=== PATIENT | male | born 1955 | race Caucasian/White ===

== ENCOUNTER 2017-02-18 05:35 | Inpatient (IN) | payer MEDICAID ==
[~2017-02-18] VITALS: Ht 180.3 cm; Wt 124.1 kg
[~2017-02-18 05:35] MED LIST: AMIODARONE PO; ASPI81CH43 PO; DOC100C PO; LISI-285 PO; MET50T PO; METF500T PO; NITR0.4S29 SL; SIMV-8 PO
[2017-02-18] MEDS ORDERED: NITROGLYCERIN 0.4 MG SL TAB SL ONE (06:00)
[2017-02-18 06:35] LABS: Basophils # (auto) 0 uL; Basophils % (auto) 0.6 % (0.0-2.0); Eosinophils # (auto) 0.1 uL; Eosinophils % (auto) 2.5 % (0.0-7.0); Hematocrit 41.9 % (41.0-53.0); Hemoglobin 14.1 g/dL (13.5-17.5); Lymphocytes # (auto) 0.8 uL; Lymphocytes % (auto) 16.9 % (10.0-50.0); Mean Corpuscular Hemoglobin 31.6 pg (28.0-32.0); Mean Corpuscular Hgb Conc. 33.7 g/dL (32.0-36.0); Mean Corpuscular Volume 93.7 fL (80.0-100.0); Mean Platelet Volume 9.8 fL (7.4-10.4); Monocytes # (auto) 0.4 uL; Monocytes % (auto) 8.5 % (0.0-12.0); Neutrophils # (auto) 3.4 uL; Neutrophils % (auto) 71.5 % (37.0-80.0); Platelet Count (auto) 213 10^3/uL (140-450); Red Cell Distribution Width 14.7 % (11.6-16.0); White Blood Cell 4.8 10^3/uL (4.4-10.8)
[2017-02-18 06:49] LABS: Albumin 3.4 g/dL (3.4-5.0); Anion Gap 11 (5-15); Aspartate Aminotransferase 44 U/L (15-37); BUN/Creatinine Ratio 15.7; Blood Urea Nitrogen 16 mg/dL (7-18); Calcium 9.2 mg/dL (8.5-10.1); Carbon Dioxide 25 mmol/L (21-32); Chloride 105 mmol/L (98-107); GFR African American 95 mL/min; GFR Non-African American 79 mL/min; Glucose 135 mg/dL (74-106); Magnesium 1.7 mg/dL (1.6-2.6); Sodium 141 mmol/L (136-145)
[2017-02-18 06:50] LABS: INR 1.05 (0.9-1.15); Prothrombin Time 11.4 sec (9.37-12.3)
[2017-02-18 06:55] LABS: Alkaline Phosphatase 75 U/L (45-117); Bilirubin, Total 0.6 mg/dL (0.2-1.0); Total Protein 7.7 g/dL (6.4-8.2)
[2017-02-18 06:58] LABS: B-Type Natriuretic Peptide 52.88 pg/mL (0-100)
[2017-02-18 07:07] LABS: Temperature: 23.2 C (20.0-25.0)
[2017-02-18] MEDS ORDERED: ASPirin 81 mg TAB PO ONE (09:15)
[2017-02-18] MEDS ORDERED: LORazepam 0.5 MG TAB PO ONE (09:15)
[2017-02-18] MEDS ORDERED: NITROGLYCERIN 0.4MG/HR TOPICAL PATCH TD ONE (09:15)
[2017-02-18] MEDS ORDERED: ERGOCALCIFEROL 50,000 UNIT(1.25MG) CAP PO SCH (11:45)
[2017-02-18] MEDS ORDERED: DEXTROSE (50%) 50ML SYRG IV PRN (11:45)
[2017-02-18] MEDS ORDERED: ONDANSETRON HCL 4 MG/2 ML VIAL IV PRN (12:00)
[2017-02-18] MEDS ORDERED: ALUM & MAG HYDROX-SIMETH LIQ(MAALOX) 30 ML PO PRN (12:00)
[2017-02-18] MEDS ORDERED: ZOLPIDEM TARTRATE 5 MG TAB PO PRN (12:00)
[2017-02-18] MEDS ORDERED: LORazepam 0.5 MG TAB PO PRN (12:00)
[2017-02-18] MEDS ORDERED: NITROGLYCERIN 0.4 MG SL TAB SL PRN ×2 (12:00)
[2017-02-18] MEDS ORDERED: ACETAMINOPHEN 325 MG TAB PO PRN (12:00)
[2017-02-18] MEDS ORDERED: MORPHINE SULF INJ 2 MG/ML SYRINGE 1ML IV PRN ×2 (12:00)
[2017-02-18] MEDS ORDERED: AMIODARONE HCL 200 MG TAB PO ONE (12:15)
[2017-02-18] MEDS ORDERED: METOPROLOL TARTRATE 25 MG TAB PO ONE (12:15)
[2017-02-18] MEDS ORDERED: DOCUSATE SOD 100 MG CAP PO ONE (12:15)
[2017-02-18] MEDS ORDERED: LOSARTAN POTASSIUM 50 MG TAB PO ONE (12:15)
[2017-02-18] MEDS ORDERED: CLOPIDOGREL BISULFATE 75 MG TAB PO ONE (12:15)
[2017-02-18] MEDS ORDERED: LISINOPRIL 10 MG TAB PO ONE (12:15)
[2017-02-18] MEDS ORDERED: GABAPENTIN 300 MG CAP PO ONE (12:15)
[2017-02-18] MEDS ORDERED: HCTZ 25 MG TAB PO ONE (12:15)
[2017-02-18] MEDS ORDERED: ASPirin-EC 325mg tab PO ONE (12:15)
[2017-02-18] MEDS ORDERED: HCTZ25T PO (13:47)
[2017-02-18] MEDS ORDERED: LOSA50TA6 PO (13:47)
[2017-02-18] MEDS ORDERED: GABA-339 PO (13:47)
[2017-02-18] MEDS ORDERED: ERGO1CAP23 PO (13:47)
[2017-02-18] MEDS ORDERED: APRE1TAB2 PO (13:47)
[2017-02-18 17:00] VITALS: BP 102/52
[2017-02-18] MEDS: InsuLIN REG 1unit/0.01ml Soln (100units/ml) SC SCH ×2 (17:00→22:00)
[2017-02-18] MEDS: SODIUM CHLOR 0.9% PF (SALINE LOCK) 10ML VIAL IV SCH ×2 (17:28→22:00)
[2017-02-18] MEDS: ACCU-CHEK COMFORT CURVE STRIP VI SCH ×2 (17:28→22:00)
[2017-02-18 18:18] LABS: Urine Bilirubin Negative (Negative); Urine Blood Negative /uL (Negative); Urine Color Yellow (Yellow); Urine Glucose Normal (Normal); Urine Hyaline Cast FEW /lpf (0 - 2); Urine Ketone Negative (Negative); Urine Mucus FEW (None Seen); Urine Nitrite Negative (Negative); Urine RBC <1 /hpf (0 - 3); Urine Squamous Epithelial Cell FEW /hpf (<5); Urine Urobilinogen Normal (Negative); Urine pH 5.5 (5.0-8.0)
[2017-02-18] MEDS: METOPROLOL TARTRATE 25 MG TAB PO SCH (21:58)
[2017-02-18] MEDS: GABAPENTIN 300 MG CAP PO SCH (21:59)
[2017-02-18 22:00] VITALS: BP 107/52
[2017-02-18] MEDS: OTEZLA 30 MG PO SCH (22:00)
[2017-02-18] MEDS ORDERED: PATIENTS OWN MEDICATION PO SCH ×2 (22:00)
[2017-02-18] MEDS ORDERED: ATORVASTATIN 20 MG TAB PO SCH (22:00)
[2017-02-19 05:00] VITALS: BP 126/64
[2017-02-19 05:49] LABS: Basophils # (auto) 0 uL; Basophils % (auto) 0.4 % (0.0-2.0); Eosinophils # (auto) 0.2 uL; Eosinophils % (auto) 3.4 % (0.0-7.0); Hematocrit 40.4 % (41.0-53.0); Hemoglobin 13.6 g/dL (13.5-17.5); Lymphocytes % (auto) 21.3 % (10.0-50.0); Mean Corpuscular Hemoglobin 31.4 pg (28.0-32.0); Mean Corpuscular Hgb Conc. 33.7 g/dL (32.0-36.0); Mean Corpuscular Volume 93.3 fL (80.0-100.0); Mean Platelet Volume 10.1 fL (7.4-10.4); Monocytes # (auto) 0.5 uL; Monocytes % (auto) 10.2 % (0.0-12.0); Neutrophils # (auto) 3.1 uL; Neutrophils % (auto) 64.7 % (37.0-80.0); Platelet Count (auto) 200 10^3/uL (140-450); Red Cell Distribution Width 14.1 % (11.6-16.0); White Blood Cell 4.7 10^3/uL (4.4-10.8)
[2017-02-19] MEDS: SODIUM CHLOR 0.9% PF (SALINE LOCK) 10ML VIAL IV SCH ×2 (05:55→11:17)
[2017-02-19 06:12] LABS: Albumin 3.2 g/dL (3.4-5.0); BUN/Creatinine Ratio 15.8; Bilirubin, Total 0.5 mg/dL (0.2-1.0); Calcium 8.9 mg/dL (8.5-10.1); Magnesium 1.9 mg/dL (1.6-2.6); Total Protein 7.4 g/dL (6.4-8.2)
[2017-02-19] MEDS: ACCU-CHEK COMFORT CURVE STRIP VI SCH ×3 (06:39→16:36)
[2017-02-19] MEDS: InsuLIN REG 1unit/0.01ml Soln (100units/ml) SC SCH ×3 (06:40→16:36)
[2017-02-19 07:58] VITALS: BP 122/60
[2017-02-19 08:22] VITALS: BP 110/65
[2017-02-19] MEDS ORDERED: CLOPIDOGREL BISULFATE 75 MG TAB PO SCH (10:00)
[2017-02-19] MEDS ORDERED: DOCUSATE SOD 100 MG CAP PO SCH (10:00)
[2017-02-19] MEDS ORDERED: ASPirin-EC 325mg tab PO SCH (10:00)
[2017-02-19] MEDS ORDERED: HCTZ 25 MG TAB PO SCH (10:00)
[2017-02-19] MEDS ORDERED: LISINOPRIL 10 MG TAB PO SCH (10:00)
[2017-02-19] MEDS: OTEZLA 30 MG PO SCH (10:00)
[2017-02-19] MEDS ORDERED: AMIODARONE HCL 200 MG TAB PO SCH (10:00)
[2017-02-19] MEDS ORDERED: LOSARTAN POTASSIUM 50 MG TAB PO SCH ×2 (10:00)
[2017-02-19] MEDS: METOPROLOL TARTRATE 25 MG TAB PO SCH (10:14)
[2017-02-19] MEDS: GABAPENTIN 300 MG CAP PO SCH (10:14)
[2017-02-19 12:09] VITALS: BP 119/72
[2017-02-19 16:54] VITALS: BP 110/68
[2017-02-19 18:20] VITALS: BP 118/74
[2017-02-19] MEDS ORDERED: ATORVASTATIN 20 MG TAB PO SCH (22:00)
[2017-02-20] MEDS ORDERED: ERGOCALCIFEROL 50,000 UNIT(1.25MG) CAP PO SCH (10:00)
== END 2017-02-19 17:45 | disposition home or self-care (01) | DRG 199 ==
LOC: ER 05:35 → TELE 05:36 → TELE-E-ADS 13:27 → TELE-EAST 16:06
PROVIDERS: ADMIT Internal Medicine; ATTEND Internal Medicine
DX: I13.10 Hypertensive heart and chronic kidney disease without heart failure, with stage 1 through stage 4 chronic kidney disease, or unspecified chronic kidney disease (principal); E11.21 Type 2 diabetes mellitus with diabetic nephropathy; I25.119 Atherosclerotic heart disease of native coronary artery with unspecified angina pectoris; E78.5 Hyperlipidemia, unspecified; N18.2 Chronic kidney disease, stage 2 (mild); E11.22 Type 2 diabetes mellitus with diabetic chronic kidney disease; R00.1 Bradycardia, unspecified; E66.01 Morbid (severe) obesity due to excess calories; F17.210 Nicotine dependence, cigarettes, uncomplicated; I35.0 Nonrheumatic aortic (valve) stenosis; Z80.9 Family history of malignant neoplasm, unspecified
CPT/HCPCS: 36415; 71020; 80053; 80061; 81001; 82962; 83036; 83735; 83880; 84484; 85025; 85610; 85730; 87086; 93005; 93306; 94761

== ENCOUNTER 2018-10-29 10:29 | Inpatient (IN) | payer MEDICAID | END 2018-10-31 18:10 | disposition home or self-care (01) | LOC: ER 10:29 → TELE 16:23 → TELE-WESTW 20:38 | DX: I63.9 Cerebral infarction, unspecified (principal); E11.21 Type 2 diabetes mellitus with diabetic nephropathy; G30.9 Alzheimer's disease, unspecified; R47.01 Aphasia; R53.1 Weakness; E78.5 Hyperlipidemia, unspecified; I10 Essential (primary) hypertension; R41.3 Other amnesia; R47.1 Dysarthria and anarthria; Z95.1 Presence of aortocoronary bypass graft; R47.81 Slurred speech; I25.10 Atherosclerotic heart disease of native coronary artery without angina pectoris; G89.29 Other chronic pain; R41.82 Altered mental status, unspecified; E83.52 Hypercalcemia; E66.01 Morbid (severe) obesity due to excess calories; G47.30 Sleep apnea, unspecified; M54.30 Sciatica, unspecified side; G47.33 Obstructive sleep apnea (adult) (pediatric) ==

== ENCOUNTER 2018-12-13 09:00 | Inpatient (IN) | payer MEDICAID | END 2018-12-27 12:39 | disposition home or self-care (01) | LOC: TELE-CENTR 12-20 11:02 → ER 09:00 → TELE-CENTR 12-25 19:52 → CENTRAL 12-26 10:42 → TELE 16:34 → TELE-CENTR 20:25 | PROC: 05H633Z Insertion of Infusion Device into Left Subclavian Vein, Percutaneous Approach (ICD-10-PCS; principal; 2018-12-23 12:44) | PROC: 0DJD8ZZ Inspection of Lower Intestinal Tract, Via Natural or Artificial Opening Endoscopic (ICD-10-PCS; 2018-12-23 12:44) | DX: C22.7 Other specified carcinomas of liver (principal); G93.41 Metabolic encephalopathy; E83.52 Hypercalcemia; D63.8 Anemia in other chronic diseases classified elsewhere; E11.9 Type 2 diabetes mellitus without complications; E66.9 Obesity, unspecified; E78.5 Hyperlipidemia, unspecified; R07.9 Chest pain, unspecified; I25.10 Atherosclerotic heart disease of native coronary artery without angina pectoris; Z95.1 Presence of aortocoronary bypass graft; I10 Essential (primary) hypertension; K76.9 Liver disease, unspecified; L40.9 Psoriasis, unspecified; R63.4 Abnormal weight loss ==

== ENCOUNTER 2019-01-13 06:26 | Inpatient (IN) | payer MEDICAID | END 2019-01-16 12:33 | disposition home or self-care (01) | LOC: ER 06:26 → TELE-WESTW 01-14 18:11 → TELE 09:44 → TELE-WESTW 15:22 | DX: C22.9 Malignant neoplasm of liver, not specified as primary or secondary (principal); G93.41 Metabolic encephalopathy; E83.52 Hypercalcemia; E11.9 Type 2 diabetes mellitus without complications; E66.9 Obesity, unspecified; D64.9 Anemia, unspecified; I10 Essential (primary) hypertension; I25.10 Atherosclerotic heart disease of native coronary artery without angina pectoris; Z95.1 Presence of aortocoronary bypass graft ==